=== PATIENT | female | born 1980 | race Caucasian/White ===

== ENCOUNTER 2018-12-16 12:22 | Emergency (ER) | payer MEDICAID ==
[~2018-12-16] VITALS: Ht 165.1 cm; Wt 77.1 kg
[2018-12-16] MEDS ORDERED: IV NORMAL SALINE 1000ML BAG 1,000 ML IV ONE (12:30)
--- NOTE | 2018-12-16 12:33 | PHYS DOC ---
Adult General Chief Complaint Chief Complaint: HEADACHE HPI HPI Patient is a 38 year old female who presents with migraine headache behind the left eye. Patient states these are her usual migraine headaches she has been getting since she was 9 years old. Patient states this feels exactly like her usual headaches. Patient states this is not the worse headache she's ever had. Patient states at 3:30 this morning the headache began she took 4 Ibuprofen. Patient states she's had nausea and vomiting. Patient states she has light sensitivity. She rates her pain 10 out of 10.[] Review of Systems Review of Systems Constitutional: Denies fever or chills [] Eyes: Denies change in visual acuity, redness, or eye pain, + light sensitivity [] HENT: Denies nasal congestion or sore throat [] Respiratory: Denies cough or shortness of breath [] GI: Denies abdominal pain. + nausea, +vomiting,denies bloody stools or diarrhea [] Neurologic: Frontal lobe behind the left eye headache, denies focal weakness or sensory changes [] All other systems were reviewed and found to be within normal limits, except as documented in this note. Current Medications Current Medications Current Medications Medications (Trade) Dose Ordered Sig/Sukhwinder Start Time Stop Time Status Last Admin Dose Admin Diphenhydramine HCl (Benadryl) 50 mg STK-MED ONCE 12/16/18 12:42 12/16/18 12:42 DC Ketorolac Tromethamine (Toradol 30mg Vial) 30 mg 1X ONCE 12/16/18 14:30 12/16/18 14:31 DC Metoclopramide HCl (Reglan Vial) 10 mg STK-MED ONCE 12/16/18 12:42 12/16/18 12:43 DC Sodium Chloride 1,000 ml @ 1,000 mls/hr 1X ONCE 12/16/18 12:30 12/16/18 13:29 DC 12/16/18 12:50 1,000 MLS/HR Allergies Allergies Allergies Coded Allergies Type Severity Reaction Last Updated Verified No Known Drug Allergies 12/16/18 No Physical Exam Physical Exam Constitutional: Well developed, well nourished, no acute distress, non-toxic appearance. [] HENT: Normocephalic, atraumatic, bilateral external ears normal, oropharynx moist, no oral exudates, nose normal. [] Eyes: PERRLA, EOMI, conjunctiva normal, no discharge. [] Neck: Normal range of motion, no tenderness, supple, no stridor. [] Cardiovascular:Heart rate regular rhythm, no murmur [] Lungs & Thorax: Bilateral breath sounds clear to auscultation [] Abdomen: Bowel sounds normal, soft, no tenderness, no masses, no pulsatile masses. [] Skin: Warm, dry, no erythema, no rash. [] Neurologic: Alert and oriented X 3, normal motor function, normal sensory function, no focal deficits noted. [] Psychologic: Affect normal, judgement normal, mood normal. Normal physical exam[] Current Patient Data Vital Signs Vital Signs Date Time Temp Pulse Resp B/P (MAP) Pulse Ox O2 Delivery O2 Flow Rate FiO2 12/16/18 15:24 74 16 97 12/16/18 12:24 97.5 135/65 (88) Room Air 97.5 Lab Values Laboratory Tests Test 12/16/18 12:52 12/16/18 14:50 White Blood Count 6.7 x10^3/uL (4.0-11.0) Red Blood Count 3.89 x10^6/uL (3.50-5.40) Hemoglobin 12.4 g/dL (12.0-15.5) Hematocrit 37.0 % (36.0-47.0) Mean Corpuscular Volume 95 fL (79-100) Mean Corpuscular Hemoglobin 32 pg (25-35) Mean Corpuscular Hemoglobin Concent 34 g/dL (31-37) Red Cell Distribution Width 13.0 % (11.5-14.5) Platelet Count 242 x10^3/uL (140-400) Neutrophils (%) (Auto) 66 % (31-73) Lymphocytes (%) (Auto) 27 % (24-48) Monocytes (%) (Auto) 6 % (0-9) Eosinophils (%) (Auto) 1 % (0-3) Basophils (%) (Auto) 0 % (0-3) Neutrophils # (Auto) 4.5 x10^3/uL (1.8-7.7) Lymphocytes # (Auto) 1.8 x10^3/uL (1.0-4.8) Monocytes # (Auto) 0.4 x10^3/uL (0.0-1.1) Eosinophils # (Auto) 0.0 x10^3/uL (0.0-0.7) Basophils # (Auto) 0.0 x10^3/uL (0.0-0.2) Sodium Level 143 mmol/L (136-145) Potassium Level 3.5 mmol/L (3.5-5.1) Chloride Level 108 mmol/L (98-107) H Carbon Dioxide Level 28 mmol/L (21-32) Anion Gap 7 (6-14) Blood Urea Nitrogen 6 mg/dL (7-20) L Creatinine 0.8 mg/dL (0.6-1.0) Estimated GFR (Cockcroft-Gault) 80.3 BUN/Creatinine Ratio 8 (6-20) Glucose Level 94 mg/dL (70-99) Calcium Level 8.7 mg/dL (8.5-10.1) Total Bilirubin 0.4 mg/dL (0.2-1.0) Aspartate Amino Transferase (AST) 13 U/L (15-37) L Alanine Aminotransferase (ALT) 11 U/L (14-59) L Alkaline Phosphatase 77 U/L (46-116) Total Protein 6.7 g/dL (6.4-8.2) Albumin 3.2 g/dL (3.4-5.0) L Albumin/Globulin Ratio 0.9 (1.0-1.7) L Urine Test Negative (NEG) Urine Opiates Screen Neg (NEG) Urine Methadone Screen Neg (NEG) Urine Barbiturates Neg (NEG) Urine Phencyclidine Screen Neg (NEG) Urine Amphetamine/Methamphetamine Pos (NEG) Urine Benzodiazepines Screen Neg (NEG) Urine Cocaine Screen Neg (NEG) Urine Cannabinoids Screen Pos (NEG) Urine Ethyl Alcohol Neg (NEG) Laboratory Tests 12/16/18 12:52 Laboratory Tests 12/16/18 12:52 EKG EKG [] Radiology/Procedures Radiology/Procedures [] Impressions: [facility] [id number] [place] [address] IMAGING REPORT Signed PATIENT: JOYCELYN RICARDO ACCOUNT: [id number] : 1980 LOCATION: ER AGE: 38 SEX: F EXAM STATUS: REG ER ORD. PHYSICIAN: KARTHIKEYAN LEYVA APRN REASON: head pain WAITING ON HCG RESULTS PROCEDURE: CT HEAD WO CONTRAST Examination: CT HEAD WO CONTRAST History: Headache Comparison/Correlation: None Findings: Axial images of the head were obtained without contrast. Ventricles are normal size. No intracranial hemorrhage, midline shift, or mass effect. Bony structures are unremarkable. Partial opacification of paranasal sinuses is noted. Impression: No acute process. PQRS Compliance Statement: One or more of the following individualized dose reduction techniques were utilized for this examination: 1. Automated exposure control 2. Adjustment of the mA and/or kV according to patient size 3. Use of iterative reconstruction technique Electronically signed by: Russell Del Angel MD (12/16/2018 4:30 PM) [facility] DICTATED and SIGNED BY: RUSSELL DEL ANGEL MD DATE: 12/16/181629 Course & Med Decision Making Course & Med Decision Making Patient is a 38 year old female who presents with migraine headache behind the left eye. Patient states these are her usual migraine headaches she has been getting since she was 9 years old. Patient states this feels exactly like her usual headaches. Patient states this is not the worse headache she's ever had. Patient states at 3:30 this morning the headache began she took 4 Ibuprofen. Patient states she's had nausea and vomiting. Patient states she has light sensitivity. She rates her pain 10 out of 10. Patient states the pain is stabbing. Patient denies any visual changes, numbness or tingling, chest pain, shortness of air, weaknesses, dizziness, syncope, recent illness. Alert and oriented. Speaks in full clear sentences. Skin pink warm and dry. Lungs are clear to auscultation all labs. Abdomen is soft and nontender. PERRLA. Answers all questions appropriately. Patient denies any neurological symptoms other than the headache. Patient states she's had MRIs and CTs done before and they can't figure out why she is having migraine headaches. Vital signs WNL. 1415: Upon walking into the room, patient is sleep but easily aroused. Patient states her headache is better and is down to a 6/10. Dragon Disclaimer Dragon Disclaimer This electronic medical record was generated, in whole or in part, using a voice recognition dictation system. Departure Departure Impression: Primary Impression: Methamphetamine abuse Additional Impressions: Marijuana abuse Headache Disposition: HOME, SELF-CARE Condition: STABLE Patient Instructions: Migraine Headache Additional Instructions: Follow up with primary care provider. Stop using Methamphetamines and Marijuana. Problem Qualifiers Additional Impressions: Headache Headache type: unspecified Headache chronicity pattern: acute headache Intractability: not intractable Qualified Codes: R51 - Headache KARTHIKEYAN LEYVA APRN Dec 16, 2018 12:33
[2018-12-16] MEDS ORDERED: METOCLOPRAMIDE HCL 10 MG/2 ML VIAL. ONE (12:42)
[2018-12-16] MEDS ORDERED: diphenhydrAMINE 50 MG/ML VIAL ONE (12:42)
[2018-12-16] MEDS ORDERED: METOCLOPRAMIDE HCL 10 MG/2 ML VIAL. IV ONE (13:00)
[2018-12-16] MEDS ORDERED: diphenhydrAMINE 50 MG/ML VIAL IVP ONE (13:00)
[2018-12-16 13:20] LABS: CALCIUM 8.7 mg/dL (8.5-10.1); CREATININE 0.8 mg/dL (0.6-1.0); GFR 80.3; POTASSIUM 3.5 mmol/L (3.5-5.1)
[2018-12-16 13:27] LABS: ALBUMIN 3.2 g/dL (3.4-5.0); ALBUMIN/GLOBULIN RATIO 0.9 (1.0-1.7); TOTAL BILIRUBIN 0.4 mg/dL (0.2-1.0); TOTAL PROTEIN 6.7 g/dL (6.4-8.2)
[2018-12-16 13:30] LABS: BASO % 0 % (0-3); EOS % 1 % (0-3); HEMOGLOBIN 12.4 g/dL (12.0-15.5); LYMPH # 1.8 x10^3/uL (1.0-4.8); LYMPH % 27 % (24-48); MEAN CORPUSCULAR HEMOGLOBIN 32 pg (25-35); MEAN CORPUSCULAR HGB CONC 34 g/dL (31-37); MEAN CORPUSCULAR VOLUME 95 fL (79-100); MONO # 0.4 x10^3/uL (0.0-1.1); MONO % 6 % (0-9); NEUT # 4.5 x10^3/uL (1.8-7.7); NEUT % 66 % (31-73); PLATELET COUNT 242 x10^3/uL (140-400); RED BLOOD COUNT 3.89 x10^6/uL (3.50-5.40); WHITE BLOOD COUNT 6.7 x10^3/uL (4.0-11.0)
[2018-12-16] MEDS ORDERED: KETOROLAC 30 MG/ML VIAL. IV ONE (14:30)
[2018-12-16 15:24] VITALS: BP 102/62
[2018-12-16 15:29] LABS: AMPHETAMINE/METHAMPHETAMINE POS (NEG); BARBITURATES NEG (NEG); BENZODIAZEPINES NEG (NEG); CANNABINOIDS POS (NEG); COCAINE NEG (NEG); METHADONE NEG (NEG); OPIATES NEG (NEG); PHENCYCLIDINE NEG (NEG)
[2018-12-16 16:14] LABS: U PREG PATIENT NEGATIVE (NEG)
--- NOTE | 2018-12-16 16:33 | RAD ---
Examination: CT HEAD WO CONTRAST History: Headache Comparison/Correlation: None Findings: Axial images of the head were obtained without contrast. Ventricles are normal size. No intracranial hemorrhage, midline shift, or mass effect. Bony structures are unremarkable. Partial opacification of paranasal sinuses is noted. Impression: No acute process. PQRS Compliance Statement: One or more of the following individualized dose reduction techniques were utilized for this examination: 1. Automated exposure control 2. Adjustment of the mA and/or kV according to patient size 3. Use of iterative reconstruction technique Electronically signed by: Russell Hickey MD (12/16/2018 4:30 PM) [facility]
== END 2018-12-16 16:55 | disposition home or self-care (01) ==
LOC: ER 12:22
DX: G43.909 Migraine, unspecified, not intractable, without status migrainosus (principal); R11.2 Nausea with vomiting, unspecified; F15.10 Other stimulant abuse, uncomplicated; F12.10 Cannabis abuse, uncomplicated
CPT/HCPCS: 36415; 70450; 80053; 80307; 81025; 85025; 96361; 96374; 96375; 99285; J1200; J2765; J7030